=== PATIENT | male | born 1985 | race Caucasian/White ===

== ENCOUNTER 2016-11-15 08:19 | Day surgery (SDC) | payer OTHER ==
[~2016-11-15] VITALS: Ht 175.3 cm; Wt 86.4 kg
[~2016-11-15 08:19] MED LIST: SODIUM CHLORIDE 0.9% 1,000 ML IV ONE
[2016-11-15] MEDS ORDERED: METOCLOPRAMIDE HCL 5 MG/ML 2 ML VIAL IVP ONE (08:20)
[2016-11-15] MEDS ORDERED: ONDANSETRON HCL 4 MG/2 ML VIAL IVP ONE (08:20)
[2016-11-15] MEDS ORDERED: GLYCOPYRROLATE 0.2 MG/ML VIAL IM ONE (08:20)
[2016-11-15] MEDS ORDERED: LIDOCAINE HCL/PF 2% 5 ML VIAL IM ONE (08:20)
[2016-11-15] MEDS ORDERED: PROPOFOL 1% 20 ML VIAL IVP ONE (08:20)
[2016-11-15] MEDS ORDERED: OXYGEN THERAPY IH SCH (10:30)
[2016-11-15] MEDS ORDERED: HYDROmorphone 2 MG/ML SYRINGE IVP PRN (10:30)
[2016-11-15] MEDS ORDERED: FentaNYL CITRATE-PF 100 MCG/2 ML VIAL IVP PRN (10:30)
[2016-11-15] MEDS ORDERED: MEPERIDINE-PF 25 MG/ML SYRINGE IVP PRN (10:30)
== END 2016-11-15 11:25 | disposition home or self-care (01) ==
LOC: EDBD 08:19 → SURGERY 08:19
PROVIDERS: ATTEND Internal Medicine Gastroenterology
DX: K29.70 Gastritis, unspecified, without bleeding (principal); K21.9 Gastro-esophageal reflux disease without esophagitis; F17.200 Nicotine dependence, unspecified, uncomplicated; Z98.890 Other specified postprocedural states
CPT/HCPCS: 43239; 88305; 88312; J2405; J2704; J2765; J3490 ×2; J7030